=== PATIENT | female | born 1980 | race Caucasian/White ===

== ENCOUNTER 2017-04-08 16:25 | Outpatient (CLI) | payer BC ==
[~2017-04-08] VITALS: Ht 170.2 cm; Wt 112.0 kg
[~2017-04-08 16:25] MED LIST: HYCET PO
[2017-04-08] MEDS ORDERED: ZANTAC300 MG PO (16:52)
[2017-04-08 16:53] VITALS: BP 139/80
[2017-04-08] MEDS ORDERED: FOLIC ACID0.8 M1 PO (16:53)
[2017-04-08] MEDS ORDERED: LEXAPRO20 MG PO (16:53)
[2017-04-08] MEDS ORDERED: ASPIR 8181 M1 PO (16:53)
[2017-04-08] MEDS ORDERED: SINGULAIR10 MG PO (16:53)
[2017-04-08] MEDS ORDERED: PRENATAL TABLE1 EAC3 PO (16:54)
[2017-04-08 17:24] VITALS: BP 124/73
[2017-04-08 17:55] LABS: BASOPHIL (%) 0.2 % (0-1); EOSINOPHIL (%) 2.3 % (0-5); EOSINOPHIL COUNT 0.2 K/uL (0-0.3); HEMOGLOBIN 10.5 G/DL (11.9-15.5); IMMATURE GRANULOCYTE (%) 0.5 % (0.0-0.7); LYMPHOCYTE (%) 17.3 % (15-42); LYMPHOCYTE COUNT 1.5 K/uL (1.0-2.8); MCH 27.2 PG (29.0-34.0); MCHC 32.8 G/DL (30.0-36.0); MCV 82.9 FL (83-99); MONOCYTE (%) 9.2 % (3-12); MONOCYTE COUNT 0.8 K/uL (0-0.8); NEUTROPHIL (%) 70.5 % (45-76); NEUTROPHIL COUNT 6.1 K/uL (1.8-6.4); PLATELET COUNT 193 K/uL (156-360); RBC DIS.WIDTH-CV 12.5 % (11.8-14.6); RBC DIS.WIDTH-SD 37.9 % (39-53); RED BLOOD COUNT 3.86 M/uL (3.80-5.20); WHITE BLOOD COUNT 8.7 K/uL (4.1-10.2)
[2017-04-08 18:03] VITALS: BP 133/86
[2017-04-08 18:12] LABS: ALBUMIN 3.1 G/DL (3.2-4.8); CHLORIDE 107 MEQ/L (99-109); POTASSIUM 4.3 MEQ/L (3.7-5.4); SODIUM 138 MEQ/L (136-147); TOTAL BILIRUBIN 0.2 MG/DL (0.0-1.0)
[2017-04-08 18:17] LABS: ALKALINE PHOSPHATASE 132 IU/L (3-129); ALT (GPT) 8 IU/L (3-49); AST (GOT) 12 IU/L (2-34); CREATININE 0.6 MG/DL (0.6-1.3); GFR ESTIMATE (CALCULATED) > 59 mL/min/; GLUCOSE 91 mg/dL (70-99); LACTATE DEHYDROGENASE 123 IU/L (20-246); UREA NITROGEN (BUN) 9 mg/dL (9-23); URIC ACID 6.1 mg/dL (3.1-9.2)
[2017-04-08 18:35] VITALS: BP 145/72
[2017-04-08 19:14] VITALS: BP 136/82
[2017-04-08 19:25] LABS: UR CREATININE CONCENTRATION 90.5 MG/DL
== END 2017-04-08 20:15 | disposition home or self-care (01) ==
LOC: LDRP-OP 16:25 → 2WEST 16:28 → LDRP-OP 07-08 16:11
PROVIDERS: Obstetrics & Gynecology
DX: O13.3 Gestational [pregnancy-induced] hypertension without significant proteinuria, third trimester (principal); O30.043 Twin pregnancy, dichorionic/diamniotic, third trimester; O09.813 Supervision of pregnancy resulting from assisted reproductive technology, third trimester; O99.213 Obesity complicating pregnancy, third trimester; E66.9 Obesity, unspecified; O09.523 Supervision of elderly multigravida, third trimester; O34.219 Maternal care for unspecified type scar from previous cesarean delivery; O99.513 Diseases of the respiratory system complicating pregnancy, third trimester; J45.909 Unspecified asthma, uncomplicated; O99.343 Other mental disorders complicating pregnancy, third trimester; F41.9 Anxiety disorder, unspecified; F32.9 Major depressive disorder, single episode, unspecified; O99.613 Diseases of the digestive system complicating pregnancy, third trimester; K21.9 Gastro-esophageal reflux disease without esophagitis; Z87.891 Personal history of nicotine dependence; Z3A.31 31 weeks gestation of pregnancy; Z82.3 Family history of stroke; Z82.49 Family history of ischemic heart disease and other diseases of the circulatory system; Z80.1 Family history of malignant neoplasm of trachea, bronchus and lung; Z80.49 Family history of malignant neoplasm of other genital organs
CPT/HCPCS: 59025; 80053; 82570; 83615; 84156; 84550; 85025; 87086; G0378

== ENCOUNTER 2017-04-22 07:42 | Inpatient (IN) | payer BC ==
[2017-04-22] VITALS (10 sets, daily range): BP systolic 121–141; BP diastolic 69–88
[~2017-04-22 07:42] MED LIST changes: +ASPIR 8181 M1 PO; +FOLIC ACID0.8 M1 PO; +LEXAPRO20 MG PO; +PRENATAL TABLE1 EAC3 PO; +SINGULAIR10 MG PO; +ZANTAC300 MG PO
[2017-04-22 09:14] LABS: BASOPHIL (%) 0.2 % (0-1); EOSINOPHIL (%) 0.8 % (0-5); EOSINOPHIL COUNT 0.1 K/uL (0-0.3); HEMATOCRIT 33.1 % (36.0-46.0); IMMATURE GRANULOCYTE (%) 0.3 % (0.0-0.7); LYMPHOCYTE (%) 12.7 % (15-42); LYMPHOCYTE COUNT 1.1 K/uL (1.0-2.8); MCH 27.3 PG (29.0-34.0); MCHC 33.2 G/DL (30.0-36.0); MCV 82.1 FL (83-99); MONOCYTE (%) 5.9 % (3-12); MONOCYTE COUNT 0.5 K/uL (0-0.8); NEUTROPHIL (%) 80.1 % (45-76); PLATELET COUNT 150 K/uL (156-360); RBC DIS.WIDTH-SD 38.7 % (39-53); RED BLOOD COUNT 4.03 M/uL (3.80-5.20); WHITE BLOOD COUNT 8.8 K/uL (4.1-10.2)
[2017-04-22 09:41] LABS: CHLORIDE 109 mEq/L (99-109); POTASSIUM 4.2 mEq/L (3.7-5.4); SODIUM 137 mEq/L (136-147)
[2017-04-22 09:44] LABS: GLUCOSE 86 mg/dL (70-99)
[2017-04-22 09:45] LABS: TOTAL BILIRUBIN 0.4 mg/dL (0.0-1.0)
[2017-04-22 09:47] LABS: ALKALINE PHOSPHATASE 220 IU/L (3-129); CREATININE 0.8 mg/dL (0.6-1.3); GFR ESTIMATE (CALCULATED) > 59 mL/min/
[2017-04-22 09:48] LABS: UREA NITROGEN (BUN) 9 mg/dL (9-23)
[2017-04-22 09:49] LABS: AST (GOT) 35 IU/L (2-34)
[2017-04-22 09:50] LABS: ALT (GPT) 25 IU/L (3-49)
[2017-04-22 09:55] LABS: GROUP B STREP NEGATIVE (NEGATIVE)
[2017-04-22 10:26] LABS: SOURCE URINE
[2017-04-22 11:24] LABS: APPEARANCE CLEAR ((CLEAR)); BILIRUBIN NEGATIVE; BLOOD NEGATIVE; COLOR YELLOW ((YELLOW)); GLUCOSE (STRIP) NEGATIVE; KETONES NEGATIVE; LEUKOCYTES NEGATIVE; NITRITE NEGATIVE; PROTEIN (STRIP) NEGATIVE; SPECIFIC GRAVITY 1.011 (1.000-1.030); UCUL ADDED? NO; UROBILINOGEN 0.2 MG/DL (0.2-1.0)
[2017-04-22 11:46] LABS: UR CREATININE CONCENTRATION 98.7 MG/DL
[2017-04-22 16:30] LABS: BASOPHIL (%) 0.2 % (0-1); EOSINOPHIL (%) 0.1 % (0-5); HEMATOCRIT 27.5 % (36.0-46.0); IMMATURE GRANULOCYTE (%) 0.6 % (0.0-0.7); LYMPHOCYTE (%) 6.3 % (15-42); MCH 27.4 PG (29.0-34.0); MCHC 32.7 G/DL (30.0-36.0); MCV 83.6 FL (83-99); MONOCYTE (%) 1.1 % (3-12); MONOCYTE COUNT 0.2 K/uL (0-0.8); NEUTROPHIL (%) 91.7 % (45-76); NEUTROPHIL COUNT 14.7 K/uL (1.8-6.4); PLATELET COUNT 157 K/uL (156-360); RBC DIS.WIDTH-SD 39.5 % (39-53); RED BLOOD COUNT 3.29 M/uL (3.80-5.20)
[2017-04-23] VITALS (17 sets, daily range): BP systolic 109–162; BP diastolic 66–87
[2017-04-23 06:38] LABS: HEMATOCRIT 19.3 % (36.0-46.0); MCH 27.2 PG (29.0-34.0); MCHC 32.1 G/DL (30.0-36.0); MCV 84.6 FL (83-99); RBC DIS.WIDTH-CV 13.2 % (11.8-14.6); RBC DIS.WIDTH-SD 40.1 % (39-53); WHITE BLOOD COUNT 13.1 K/uL (4.1-10.2)
[2017-04-23 06:39] LABS: HEMOGLOBIN 6.2 G/DL (11.9-15.5); RED BLOOD COUNT 2.28 M/uL (3.80-5.20)
[2017-04-23 07:47] LABS: BASOPHIL (%) 0.1 % (0-1); EOSINOPHIL (%) 0.1 % (0-5); IMMATURE GRANULOCYTE (%) 0.6 % (0.0-0.7); LYMPHOCYTE (%) 10.6 % (15-42); LYMPHOCYTE COUNT 1.4 K/uL (1.0-2.8); MONOCYTE (%) 8.3 % (3-12); MONOCYTE COUNT 1.1 K/uL (0-0.8); NEUTROPHIL (%) 80.3 % (45-76); NEUTROPHIL COUNT 10.5 K/uL (1.8-6.4); PLAT.SUFFICIENCY ADEQUATE; PLATELET CLUMPS PRESENT - PLATELET COUNT APPEARS ADQ.
[2017-04-23 07:50] LABS: PLATELET COUNT UNABLE TO REPORT K/uL (156-360)
[2017-04-23 20:00] LABS: HEMATOCRIT 23.1 % (36.0-46.0); HEMOGLOBIN 7.8 G/DL (11.9-15.5); MCH 28.6 PG (29.0-34.0); MCHC 33.8 G/DL (30.0-36.0); MCV 84.6 FL (83-99); NRBC (%) 0.2 /100 WBC (0-0); RBC DIS.WIDTH-CV 13.6 % (11.8-14.6); RBC DIS.WIDTH-SD 41.7 % (39-53); RED BLOOD COUNT 2.73 M/uL (3.80-5.20); WHITE BLOOD COUNT 12.6 K/uL (4.1-10.2)
[2017-04-23 20:36] LABS: PLATELET COUNT 117 K/uL (156-360)
[2017-04-24] VITALS (7 sets, daily range): BP systolic 116–146; BP diastolic 67–95
[2017-04-24 06:57] LABS: BASOPHIL (%) 0.2 % (0-1); EOSINOPHIL (%) 0.8 % (0-5); EOSINOPHIL COUNT 0.1 K/uL (0-0.3); HEMATOCRIT 22.4 % (36.0-46.0); HEMOGLOBIN 7.4 G/DL (11.9-15.5); IMMATURE GRANULOCYTE (%) 1.4 % (0.0-0.7); LYMPHOCYTE (%) 17.5 % (15-42); LYMPHOCYTE COUNT 1.9 K/uL (1.0-2.8); MCH 28.2 PG (29.0-34.0); MCV 85.5 FL (83-99); MONOCYTE COUNT 0.8 K/uL (0-0.8); NEUTROPHIL (%) 73.1 % (45-76); NEUTROPHIL COUNT 7.9 K/uL (1.8-6.4); NRBC (%) 0.2 /100 WBC (0-0); PLATELET COUNT 120 K/uL (156-360); RBC DIS.WIDTH-CV 13.8 % (11.8-14.6); RBC DIS.WIDTH-SD 42.6 % (39-53); RED BLOOD COUNT 2.62 M/uL (3.80-5.20); WHITE BLOOD COUNT 10.9 K/uL (4.1-10.2)
[2017-04-24 14:16] LABS: CHLAMYDIA TRACHOMATIS NEGATIVE; NEISSERIA GONORRHOEAE NEGATIVE
[2017-04-25 02:31] VITALS: BP 136/75
[2017-04-25 07:32] VITALS: BP 147/85
[2017-04-25 08:05] VITALS: BP 136/82
[2017-04-25 09:07] VITALS: BP 144/85
[2017-04-25 19:42] LABS: HEMATOCRIT 22.7 % (36.0-46.0); HEMOGLOBIN 7.4 G/DL (11.9-15.5); MCH 28.4 PG (29.0-34.0); MCHC 32.6 G/DL (30.0-36.0); NRBC (%) 0.4 /100 WBC (0-0); RBC DIS.WIDTH-CV 13.9 % (11.8-14.6); RBC DIS.WIDTH-SD 43.3 % (39-53); RED BLOOD COUNT 2.61 M/uL (3.80-5.20); WHITE BLOOD COUNT 8.1 K/uL (4.1-10.2)
[2017-04-25 19:47] LABS: PLATELET COUNT 164 K/uL (156-360)
[2017-04-25 20:00] VITALS: BP 147/86
[2017-04-25 23:06] VITALS: BP 154/84
[2017-04-26 03:12] VITALS: BP 137/78
[2017-04-26 07:02] VITALS: BP 144/86
[2017-04-26] MEDS ORDERED: IBUPROFEN800 MG PO (12:31)
[2017-04-26] MEDS ORDERED: ASCORBIC ACID500 M3 PO (12:31)
[2017-04-26] MEDS ORDERED: FERROUS SULFAT325 MG PO (12:31)
[2017-04-26] MEDS ORDERED: ENDOCET 5-3251 EACH PO (12:31)
[2017-04-26] MEDS ORDERED: LABETALOL HCL200 MG PO (12:31)
[2017-04-26 12:37] VITALS: BP 138/81
[2017-04-26 13:58] LABS: CHLORIDE 108 MEQ/L (99-109); POTASSIUM 4.2 MEQ/L (3.7-5.4); SODIUM 141 MEQ/L (136-147); TOTAL BILIRUBIN 0.3 MG/DL (0.0-1.0)
[2017-04-26 14:04] LABS: ALT (GPT) 26 IU/L (3-49); AST (GOT) 33 IU/L (2-34); CREATININE 0.8 MG/DL (0.6-1.3); GFR ESTIMATE (CALCULATED) > 59 mL/min/; GLUCOSE 126 mg/dL (70-99); TOTAL PROTEIN 5.1 G/DL (6.4-8.3); UREA NITROGEN (BUN) 11 mg/dL (9-23)
[2017-04-26 14:05] LABS: ALKALINE PHOSPHATASE 141 IU/L (3-129)
[2017-04-26 14:33] VITALS: BP 127/68
== END 2017-04-26 18:05 | disposition home or self-care (01) | DRG 765 ==
LOC: LDRP-OP 07:42 → 2WEST 07:43 → LDRP-OP 07-08 21:25
PROVIDERS: Advanced Practice Midwife; Obstetrics & Gynecology; Obstetrics & Gynecology Obstetrics
PROC: 10D00Z1 Extraction of Products of Conception, Low, Open Approach (ICD-10-PCS; principal; 2017-04-22)
DX: O30.043 Twin pregnancy, dichorionic/diamniotic, third trimester (principal); O60.14X1 Preterm labor third trimester with preterm delivery third trimester, fetus 1; O69.81X0 Labor and delivery complicated by cord around neck, without compression, not applicable or unspecified; O60.14X2 Preterm labor third trimester with preterm delivery third trimester, fetus 2; O69.81X2 Labor and delivery complicated by cord around neck, without compression, fetus 2; O99.344 Other mental disorders complicating childbirth; F32.9 Major depressive disorder, single episode, unspecified; F41.9 Anxiety disorder, unspecified; O99.214 Obesity complicating childbirth; E66.9 Obesity, unspecified; O34.211 Maternal care for low transverse scar from previous cesarean delivery; D62 Acute posthemorrhagic anemia; O99.02 Anemia complicating childbirth; O13.4 Gestational [pregnancy-induced] hypertension without significant proteinuria, complicating childbirth; I10 Essential (primary) hypertension; O72.1 Other immediate postpartum hemorrhage; Z68.30 Body mass index [BMI] 30.0-30.9, adult; Z3A.33 33 weeks gestation of pregnancy; Z37.2 Twins, both liveborn
CPT/HCPCS: 36415; 80053; 81003; 82570; 84156; 85025; 85025 91; 85027; 86850; 86900; 86901; 86920; 87480; 87491; 87510; 87591; 87653; 87660; J0290; J0690; J0702; J1100; J1170; J1885; J1940; J2175; J2210; J2274; J2405; J2765; J3010; J3475; J7050; J7120; P9016